=== PATIENT | female | born 1995 | race American Indian/Alaskan Native ===

== ENCOUNTER 2017-03-21 15:05 | Emergency (ER) | payer MEDICAID ==
[2017-03-21 15:59] VITALS: BP 137/80
--- NOTE | 2017-03-21 16:45 | Emergency Department Report ---
Chief Complaint: Medical Clearance Stated Complaint: MEDS REFILL Time Seen by Provider: 03/21/17 16:09 - [facility] History of Present Illness: This Is a 21-year-old female with a history of chronic pain presents to ED asking for her medications refilled. Patient states she is currently on 15 mg of oxycodone for chronic pain. Patient states she just moved down here from [place] and is within a [employer] referral from her doctor. Patient denies any pain today. She denies fevers/chills/nausea/vomiting/shortness of breath/S chest pain or any other problems. - ROS Review of Systems: As noted in HPI - Exam Vital Signs: Vital Signs 03/21/17 15:56 Temperature 97.8 F Pulse Rate 80 Respiratory 18 Rate Blood Pressure 137/80 O2 Sat by Pulse 100 Oximetry Physical Exam: GENERAL: Alert and oriented x3, no apparent distress, Normal Gait, atraumatic. HEAD: Head is normocephalic and a-traumatic. EYES: Extra ocular muscles are intact. Pupils are equal, round, and reactive to light and accommodation. NECK: Supple. Non edematous, No carotid bruits. No lymphadenopathy or thyromegaly. No C-spine tenderness LUNGS: Symetrical with respiration, No wheezing, no rales or crackles, CTAB. HEART: S1, S2 present, regular rate and rhythm without murmur, no rubs, no gallops. EXTREMITIES/MUSCULOSKELETAL: No cyanosis, clubbing, rash, lesions or edema. Full ROM bilaterally. UE Pulses 2+ bilaterally. SKIN: Warm and dry, No lesions, No ulceration or induration present. MSE screening note: Focused history and physical exam performed. Due to findings the following was ordered: ED Medical Decision Making - Medical Decision Making 21 female presents with a medication refill ED course: Patient is not in any acute distress or pain. Discussed the patient and see emergency Department we do not refill narcotics. Discussed the patient have to follow-up with her primary care for our pain management clinic. Discussed the patient to wait for pain management referral from her primary care physician and follow up with her doctor. Discussed patient to feel free to follow-up with referrals given. Patient is in no acute distress vital signs are normal. ED Disposition for MSE Clinical Impression: Medication refill Disposition: DISCHARGED TO HOME OR SELFCARE Is pt being admited?: No Does the pt Need Aspirin: No Condition: Stable Instructions: Chronic Back Pain (ED), Chronic Pain (ED) Additional Instructions: Follow-up with primary care physician has referred for pain management. Technique medication as prescribed until follow-up with a pain management doctor. Prescriptions: Methocarbamol [Robaxin TAB] 750 mg PO BID #20 tab traMADol [Ultram 50 MG tab] 50 mg PO Q6HR PRN #20 tablet PRN Reason: Pain Referrals: PRIMARY CARE,MD [Primary Care Provider] - 3-5 Days [facility] [Outside] - 3-5 Days [facility] [Outside] - 3-5 Days [facility] [Outside] - 3-5 Days [facility] [Outside] - 3-5 Days Forms: Work/School Release Form(ED) Time of Disposition: 17:10
== END 2017-03-21 17:25 | disposition home or self-care (01) ==
LOC: ED 15:05
DX: Z76.0 Encounter for issue of repeat prescription (principal)
CPT/HCPCS: 99282